=== PATIENT | male | born 1990 | race Two or more races ===

== ENCOUNTER 2019-04-13 10:13 | Emergency (ER) | payer MEDICAID, OTHER ==
[~2019-04-13] VITALS: Ht 190.5 cm; Wt 104.3 kg
[2019-04-13 11:12] LABS: Basophils # (auto) 0.1 uL; Basophils % (auto) 0.7 % (0.0-2.0); Eosinophils # (auto) 0 uL; Eosinophils % (auto) 0.1 % (0.0-7.0); Hematocrit 46.2 % (41.0-53.0); Hemoglobin 15.4 g/dL (13.5-17.5); Lymphocytes # (auto) 2.6 uL; Lymphocytes % (auto) 26.3 % (10.0-50.0); Mean Corpuscular Hemoglobin 28.5 pg (28.0-32.0); Mean Corpuscular Hgb Conc. 33.3 g/dL (32.0-36.0); Mean Corpuscular Volume 85.7 fL (80.0-100.0); Monocytes # (auto) 0.8 uL; Monocytes % (auto) 7.8 % (0.0-12.0); Neutrophils # (auto) 6.4 uL; Neutrophils % (auto) 65.1 % (37.0-80.0); Nucleated Red Blood Cells % 0.1 %; Platelet Count (auto) 392 10^3/uL (140-450); Red Blood Cells 5.39 10^6/uL (4.5-5.90); Red Cell Distribution Width 15.1 % (11.8-14.3); White Blood Cell 9.8 10^3/uL (4.4-10.8)
[2019-04-13 11:27] LABS: Albumin 4.1 g/dL (3.4-5.0); Anion Gap 9 (5-15); Blood Alcohol < 3.0 mg/dL (0-5); Blood Urea Nitrogen 9 mg/dL (7-18); Calcium 9.1 mg/dL (8.5-10.1); Carbon Dioxide 25 mmol/L (21-32); Chloride 104 mmol/L (98-107); Glucose 92 mg/dL (74-106); Potassium 3.5 mmol/L (3.5-5.1); Salicylate < 1.7 mg/dL (2.8-20.0); Sodium 138 mmol/L (136-145)
[2019-04-13 11:31] LABS: Alanine Aminotransferase 50 U/L (16-61); Alkaline Phosphatase 87 U/L (45-117); Aspartate Aminotransferase 25 U/L (15-37); BUN/Creatinine Ratio 8.3; Bilirubin, Total 0.7 mg/dL (0.2-1.0); GFR African American 104 mL/min; GFR Non-African American 86 mL/min; Total Protein 8.5 g/dL (6.4-8.2)
[2019-04-13 11:42] LABS: Acetaminophen < 2.0 ug/mL (10-30)
[2019-04-13 13:32] LABS: Urine Bacteria NONE SEEN /hpf (None Seen); Urine Blood Negative /uL (Negative); Urine Mucus MODERATE (None Seen); Urine Specific Gravity 1.028 (1.001-1.035); Urine WBC 6 /hpf (0 - 3)
[2019-04-13 13:58] LABS: Alcohol, Urine < 3.0 mg/dL (0-5); Amphetamine Screen, Urine POSITIVE (NEGATIVE); Barbiturate Scree,Urine NEGATIVE (NEGATIVE); Benzodiazephine Screen, Urine NEGATIVE (NEGATIVE); Cannabinoid Screen, Urine NEGATIVE (NEGATIVE); Cocaine Screen, Urine NEGATIVE (NEGATIVE); Opiate Scree,Urine NEGATIVE (NEGATIVE); Phencyclidine Screen, Urine NEGATIVE (NEGATIVE)
[2019-04-13] MEDS ORDERED: LORazepam 0.5 MG TAB PO ONE (18:00)
[2019-04-13] MEDS ORDERED: LORazepam 0.5 MG TAB ONE (18:01)
[2019-04-14] MEDS: OLANZapine 5 MG TAB PO PRN (05:49)
[2019-04-15] MEDS: OLANZapine 5 MG TAB PO PRN (22:31)
[2019-04-17] MEDS ORDERED: OLANZapine 5 MG TAB ONE ×2 (00:27→09:53)
[2019-04-17] MEDS: OLANZapine 5 MG TAB PO PRN (00:32)
[2019-04-17 08:05] VITALS: BP 98/75
[2019-04-17] MEDS ORDERED: OLANZapine 5 MG TAB PO SCH (10:00)
== END 2019-04-17 16:47 | disposition short-term general hospital (02) ==
LOC: ER 10:13
DX: F32.9 Major depressive disorder, single episode, unspecified (principal); R45.851 Suicidal ideations; I10 Essential (primary) hypertension; F15.10 Other stimulant abuse, uncomplicated; Z90.49 Acquired absence of other specified parts of digestive tract
CPT/HCPCS: 36415; 80053; 80307; 80320; 80329; 81001; 85025; 93005

== ENCOUNTER → 2019-08-22 | Emergency (ER) | payer MEDICAID | END | disposition left against medical advice (07) | LOC: ER 22:20 | DX: Z76.0 Encounter for issue of repeat prescription (principal); Z53.21 Procedure and treatment not carried out due to patient leaving prior to being seen by health care provider ==

== ENCOUNTER → 2019-09-29 | Emergency (ER) | payer MEDICAID ==
[~2019-09-29] VITALS: Ht 190.5 cm; Wt 99.8 kg
[~2019-09-29] MED LIST: LORazepam 0.5 MG TAB PO ONE
[2019-09-29 22:52] VITALS: BP 139/82
[2019-09-30 00:01] LABS: Basophils # (auto) 0 10 ^3/uL (0-0.2); Basophils % (auto) 0.2 % (0.0-2.0); Eosinophils # (auto) 0 10 ^3/uL (0-0.8); Eosinophils % (auto) 0.1 % (0.0-7.0); Hematocrit 45.3 % (41.0-53.0); Hemoglobin 14.9 g/dL (13.5-17.5); Lymphocytes # (auto) 2.5 10 ^3/uL (0.4-5.4); Lymphocytes % (auto) 25.2 % (10.0-50.0); Mean Corpuscular Hemoglobin 29.7 pg (28.0-32.0); Monocytes # (auto) 0.6 10 ^3/uL (0-1.3); Monocytes % (auto) 6.3 % (0.0-12.0); Neutrophils # (auto) 6.7 10 ^3/uL (1.6-8.6); Neutrophils % (auto) 68.2 % (37.0-80.0); Nucleated Red Blood Cells % 0.1 %; Platelet Count (auto) 353 10^3/uL (140-450); Red Blood Cells 5.03 10^6/uL (4.5-5.90); White Blood Cell 9.8 10^3/uL (4.4-10.8)
[2019-09-30 00:17] LABS: Alanine Aminotransferase 47 U/L (16-61); Albumin 4.1 g/dL (3.4-5.0); Anion Gap 7 (5-15); Aspartate Aminotransferase 26 U/L (15-37); BUN/Creatinine Ratio 7.8; Blood Alcohol < 3.0 mg/dL (0-5); Blood Urea Nitrogen 8 mg/dL (7-18); Calcium 9.1 mg/dL (8.5-10.1); Carbon Dioxide 26 mmol/L (21-32); Chloride 106 mmol/L (98-107); GFR African American 111 mL/min; GFR Non-African American 92 mL/min; Glucose 90 mg/dL (74-106); Potassium 3.8 mmol/L (3.5-5.1); Sodium 139 mmol/L (136-145)
[2019-09-30 00:20] LABS: Alkaline Phosphatase 72 U/L (45-117); Bilirubin, Total 0.8 mg/dL (0.2-1.0); Total Protein 8.3 g/dL (6.4-8.2)
== END | disposition home or self-care (01) ==
LOC: ER 22:47
DX: F20.9 Schizophrenia, unspecified (principal); R45.851 Suicidal ideations; F32.9 Major depressive disorder, single episode, unspecified; F41.9 Anxiety disorder, unspecified; I10 Essential (primary) hypertension; F15.10 Other stimulant abuse, uncomplicated; F12.10 Cannabis abuse, uncomplicated; F11.10 Opioid abuse, uncomplicated; Z90.49 Acquired absence of other specified parts of digestive tract
CPT/HCPCS: 36415; 80053; 80320; 85025

== ENCOUNTER → 2019-09-29 | Emergency (ER) | payer MEDICAID ==
[~2019-09-29] VITALS: Ht 190.5 cm; Wt 95.3 kg
[2019-09-29 16:44] LABS: Basophils # (auto) 0 10 ^3/uL (0-0.2); Basophils % (auto) 0.5 % (0.0-2.0); Eosinophils # (auto) 0 10 ^3/uL (0-0.8); Eosinophils % (auto) 0.1 % (0.0-7.0); Hematocrit 48.5 % (41.0-53.0); Hemoglobin 15.7 g/dL (13.5-17.5); Lymphocytes # (auto) 2.8 10 ^3/uL (0.4-5.4); Lymphocytes % (auto) 35.9 % (10.0-50.0); Mean Corpuscular Hemoglobin 29.2 pg (28.0-32.0); Mean Corpuscular Hgb Conc. 32.4 g/dL (32.0-36.0); Mean Corpuscular Volume 90.2 fL (80.0-100.0); Monocytes # (auto) 0.7 10 ^3/uL (0-1.3); Neutrophils # (auto) 4.3 10 ^3/uL (1.6-8.6); Neutrophils % (auto) 54.5 % (37.0-80.0); Nucleated Red Blood Cells % 0.1 %; Platelet Count (auto) 335 10^3/uL (140-450); Red Blood Cells 5.38 10^6/uL (4.5-5.90); Red Cell Distribution Width 15.1 % (11.8-14.3); White Blood Cell 7.9 10^3/uL (4.4-10.8)
[2019-09-29 16:56] LABS: Alanine Aminotransferase 45 U/L (16-61); Albumin 4.4 g/dL (3.4-5.0); Anion Gap 10 (5-15); Aspartate Aminotransferase 23 U/L (15-37); BUN/Creatinine Ratio 8.3; Blood Alcohol < 3.0 mg/dL (0-5); Blood Urea Nitrogen 8 mg/dL (7-18); Calcium 9.5 mg/dL (8.5-10.1); Carbon Dioxide 22 mmol/L (21-32); Chloride 106 mmol/L (98-107); GFR African American 119 mL/min; GFR Non-African American 98 mL/min; Glucose 100 mg/dL (74-106); Potassium 3.5 mmol/L (3.5-5.1); Salicylate < 1.7 mg/dL (2.8-20.0); Sodium 138 mmol/L (136-145)
[2019-09-29 16:59] LABS: Alkaline Phosphatase 75 U/L (45-117); Total Protein 8.5 g/dL (6.4-8.2)
[2019-09-29 17:01] LABS: Acetaminophen < 2.0 ug/mL (10-30)
[2019-09-29 19:10] VITALS: BP 127/91
== END | disposition left against medical advice (07) ==
LOC: ER 16:03
DX: R45.851 Suicidal ideations (principal); F20.9 Schizophrenia, unspecified; F41.9 Anxiety disorder, unspecified; F32.9 Major depressive disorder, single episode, unspecified; I10 Essential (primary) hypertension; F15.10 Other stimulant abuse, uncomplicated; F12.10 Cannabis abuse, uncomplicated; F11.10 Opioid abuse, uncomplicated; Z90.49 Acquired absence of other specified parts of digestive tract
CPT/HCPCS: 36415; 80053; 80320; 80329; 85025

== ENCOUNTER 2020-08-01 19:50 | Emergency (ER) | payer MEDICAID ==
[~2020-08-01] VITALS: Ht 193 cm; Wt 99.8 kg
[2020-08-01 21:48] LABS: Basophils # (auto) 0 10 ^3/uL (0-0.2); Basophils % (auto) 0.3 % (0.0-2.0); Eosinophils # (auto) 0 10 ^3/uL (0-0.8); Eosinophils % (auto) 0.1 % (0.0-7.0); Hematocrit 42.5 % (41.0-53.0); Hemoglobin 14.4 g/dL (13.5-17.5); Lymphocytes # (auto) 2.6 10 ^3/uL (0.4-5.4); Lymphocytes % (auto) 25.2 % (10.0-50.0); Mean Corpuscular Hemoglobin 30.9 pg (28.0-32.0); Mean Corpuscular Hgb Conc. 33.8 g/dL (32.0-36.0); Mean Corpuscular Volume 91.5 fL (80.0-100.0); Monocytes # (auto) 1.1 10 ^3/uL (0-1.3); Monocytes % (auto) 10.6 % (0.0-12.0); Neutrophils # (auto) 6.6 10 ^3/uL (1.6-8.6); Neutrophils % (auto) 63.8 % (37.0-80.0); Nucleated Red Blood Cells % 0.1 %; Platelet Count (auto) 391 10^3/uL (140-450); Red Blood Cells 4.65 10^6/uL (4.5-5.90); Red Cell Distribution Width 13.7 % (11.8-14.3); White Blood Cell 10.4 10^3/uL (4.4-10.8)
[2020-08-01 22:04] LABS: Salicylate < 1.7 mg/dL (2.8-20.0)
[2020-08-01 22:05] LABS: Acetaminophen < 2.0 ug/mL (10-30); Albumin 4.6 g/dL (3.4-5.0); Potassium 3.1 mmol/L (3.5-5.1)
[2020-08-01 22:08] LABS: BUN/Creatinine Ratio 7.8; Bilirubin, Total 1.7 mg/dL (0.2-1.0); Total Protein 8.7 g/dL (6.4-8.2)
[2020-08-01] MEDS ORDERED: LORazepam 2MG/ML-1ML VIAL IV STA (23:36)
[2020-08-02 05:57] VITALS: BP 123/86
== END 2020-08-02 06:11 | disposition home or self-care (01) ==
LOC: EDBD 19:50 → ER 19:50
DX: R45.851 Suicidal ideations (principal); F31.9 Bipolar disorder, unspecified; F41.9 Anxiety disorder, unspecified; I10 Essential (primary) hypertension; F12.10 Cannabis abuse, uncomplicated; F15.10 Other stimulant abuse, uncomplicated; Z90.49 Acquired absence of other specified parts of digestive tract
CPT/HCPCS: 36415; 80053; 80329; 85025; 96374; 99285; J2060

== ENCOUNTER 2022-03-10 10:39 | Emergency (ER) | payer MEDICAID ==
[~2022-03-10] VITALS: Ht 190.5 cm; Wt 143.0 kg
[2022-03-10 12:17] VITALS: BP 185/91
[2022-03-10] MEDS ORDERED: ACETAMINOPHEN 500 MG TAB PO ONE (12:30)
[2022-03-10] MEDS ORDERED: AMOX500C2 PO (13:58)
[2022-03-10] MEDS ORDERED: PRED20TA2 PO (14:01)
== END 2022-03-10 14:11 | disposition home or self-care (01) ==
LOC: ER 10:39
DX: J02.9 Acute pharyngitis, unspecified (principal); I10 Essential (primary) hypertension; F12.10 Cannabis abuse, uncomplicated; F15.10 Other stimulant abuse, uncomplicated; Z90.49 Acquired absence of other specified parts of digestive tract
CPT/HCPCS: 87070; 87077; 87186; 87880